=== PATIENT | female | born 1940 | race Caucasian/White ===

== ENCOUNTER → 2016-08-06 | Outpatient (CLI) | payer MEDICARE, BC ==
--- NOTE | 2016-08-07 15:06 | MR ---
EXAMINATION TYPE: MR lumbar spine wo con DATE OF EXAM: 08/06/2016 1:08 PM COMPARISON: NONE HISTORY: 76-year-old female with low back pain x1 year TECHNIQUE: Multiplanar, multisequence images of the lumbar spine were acquired. FINDINGS: Vertebral body heights are preserved. No suspicious bone marrow replacement. Conus medullaris is normal. There is a transitional lumbosacral segment which will be denoted as a sacralized L5. There is ligamentum flavum thickening with prominent dorsal epidural fat and hypertrophic facet arthr opathy in the mid to lower lumbar spine. Changes results in grade 1 anterolisthesis above the transitional level at L4-L5 and also at L3-L4. T race grade 1 retrolisthesis at L1-L2. At T12-L1, minimal disc bulge without canal or foraminal stenosis. At L1-L2, minimal disc bulge and some prominent dorsal epidural fat. No significant canal or foramina l stenosis. At L2-L3, minimal disc bulge with prominent dorsal epidural fat and ligamentum flavum thickening. Ashley nges result in minimal bilateral inferior foraminal narrowing without significant spinal canal stenos is. At L3-L4, there is disc bulge with hypertrophic facet arthropathy and ligamentum flavum thickening wi th prominent dorsal epidural fat. There is grade 1 anterolisthesis at this level and a moderate spina l canal stenosis. Mild left greater than right neuroforaminal stenosis. At L4-L5, there is facet hypertrophic facet arthropathy with grade 1 anterolisthesis and no significa nt spinal canal or neuroforaminal stenosis. At L5-S1, no spinal canal or neural foraminal stenosis. Suggestion of a parapelvic cyst in the right kidney. No prevertebral or paravertebral soft tissue abn ormality seen. IMPRESSION: 1. Transitional lumbosacral segment denoted as a sacralized L5. 2. Hypertrophic facet arthropathy and ligamentum flavum thickening above the transitional segment wit h grade 1 anterolistheses at L3-L4 and L4-L5. The overall changes contribute to a moderate spinal can al stenosis at L3-L4 with mild left greater than right neuroforaminal stenosis.
== END | disposition home or self-care (01) ==
LOC: RADMRIMAIN 12:30
PROVIDERS: ATTEND Physician Assistant
DX: M43.16 Spondylolisthesis, lumbar region (principal); M48.06 Spinal stenosis, lumbar region; M99.73 Connective tissue and disc stenosis of intervertebral foramina of lumbar region; M46.96 Unspecified inflammatory spondylopathy, lumbar region; M24.28 Disorder of ligament, vertebrae
CPT/HCPCS: 72148

== ENCOUNTER → 2017-04-15 | Outpatient (CLI) | payer MEDICARE, BC ==
--- NOTE | 2017-04-16 00:44 | MR ---
EXAMINATION TYPE: MR brain wo/w con DATE OF EXAM: 04/15/2017 COMPARISON: NONE HISTORY: Unspecified disorientation and confusion (R 41.0) per order. Dizziness and memory loss per patient. TECHNIQUE: Multiplanar, multisequence images of the brain and brainstem is performed without and with IV contras t, utilizing 9 mL intravenous Gadavist . FINDINGS: Motion artifact degradation is present. Diffusion weighted images demonstrate no evidence o f a recent infarct or other diffusion abnormality. There is no worrisome extra-axial fluid collectio n . There is ventricular and sulcal prominence consistent with mild diffuse cerebral atrophy. There i s more prominent focal and confluent areas of T2 hyperintensity seen throughout the deep and perivent ricular white matter bilaterally. Brain stem or pontine lesions also noted. Lesions are nonspecific i n appearance and distribution of most likely a basis of product of proximal vessel ischemic change in patient of this age. Midline structures demonstrate normal morphology. The craniocervical junction appears within normal limits. Post contrast images demonstrate no abnormal enhancement. The dural venous sinuses appear pa tent. The visualized sinuses are clear and the globes are intact. Patchy increased fluid signal left mastoid air cells is present. IMPRESSION: 1. There is background of mild to moderate diffuse cerebral atrophy and advanced nonspecific white ma tter changes most likely on basis of product of proximal vessel ischemic change. 2. Increased fluid signal left mastoid air cells likely reflects retained secretions, underlying mast oiditis should be excluded clinically.
== END | disposition home or self-care (01) ==
LOC: RADMRIMAIN 12:27
PROVIDERS: ATTEND Physician Assistant
DX: G31.9 Degenerative disease of nervous system, unspecified (principal); R90.82 White matter disease, unspecified
CPT/HCPCS: 70553; A9581